=== PATIENT | male | born 1975 | race Caucasian/White ===

== ENCOUNTER 2019-09-12 03:32 | Emergency (ER) | payer BC ==
[2019-09-12] MEDS ORDERED: NORMAL SALINE 1000 ML 1,000 ML IV ONE (03:52)
[2019-09-12] MEDS ORDERED: HYDROMORPHONE HCL INJ/PF 2 MG/ML AMPULE IV ONE (03:52)
--- NOTE | 2019-09-12 03:54 | ER Document Report ---
ED GI/ - General Stated Complaint: ABDOMINAL PAIN Time Seen by Provider: 09/12/19 03:45 Primary Care Provider: [facility] [Provider Group] - Follow up tomorrow Notes: Patient is a 43-year-old male that comes to the emergency department for chief complaint of sudden onset of sharp right upper quadrant pain with nausea and 4 episodes of vomiting. Pain started at midnight tonight and woke him up out of his sleep. He denies flank pain, fever/chills, or history of the same. He denies any abdominal surgeries or any daily medications. He denies alcohol tonight. He denies recreational drugs. - Related Data Allergies/Adverse Reactions: No Known Allergies Allergy (Unverified 09/12/19 04:42) Past Medical History - General Information source: Patient, Relative - Social History Smoking Status: Never Smoker Frequency of alcohol use: None Drug Abuse: None Lives with: Family Family History: Reviewed & Not Pertinent - Medical History Medical History: Negative Surgical Hx: Negative - Immunizations Immunizations up to date: Yes Hx Diphtheria, Pertussis, Tetanus Vaccination: Yes Review of Systems - Review of Systems Constitutional: No symptoms reported EENT: No symptoms reported Cardiovascular: No symptoms reported Respiratory: No symptoms reported Gastrointestinal: See HPI Genitourinary: No symptoms reported Male Genitourinary: No symptoms reported Musculoskeletal: No symptoms reported Skin: No symptoms reported Hematologic/Lymphatic: No symptoms reported Neurological/Psychological: No symptoms reported Physical Exam - Vital signs Vitals: Temp Pulse Resp BP Pulse Ox 98 F 60 24 H 150/85 H 99 09/12/19 03:33 09/12/19 03:33 09/12/19 03:33 09/12/19 03:33 09/12/19 03:33 - Notes Notes: GENERAL: Alert, appears to be in pain, tearful HEAD: Normocephalic, atraumatic. EYES: Pupils equal, round, and reactive to light. Extraocular movements intact. ENT: Oral mucosa moist, tongue midline. Oropharynx unremarkable. NECK: Full range of motion. Supple. Trachea midline. LUNGS: Clear to auscultation bilaterally, no wheezes, rales, or rhonchi. No respiratory distress. HEART: Regular rate and rhythm. No murmur ABDOMEN: Tender in the right upper quadrant, remaining abdomen is soft and benign. No guarding or rigidity, bowel sounds present. GENITOURINARY: Deferred EXTREMITIES: Moves all 4 extremities spontaneously. No edema, normal radial and dorsalis pedis pulses bilaterally. No cyanosis. BACK: No CVA tenderness. No cervical, thoracic, lumbar midline tenderness. No saddle anesthesia, normal distal neurovascular exam. Moves all extremities in full range of motion. NEUROLOGICAL: Alert and oriented x3. Normal speech. Cranial nerves II through XII grossly intact. PSYCH: Anxious and tearful SKIN: Warm, dry, normal turgor. No rashes or lesions noted. Course - Re-evaluation Re-evalutation: Patient initially appears to be in pain and is tearful, after pain medication this improved but he is still anxious, he was given Ativan as a result. After this he became calm and relaxed. CBC unremarkable, chemistry unremarkable, lipase unremarkable, urinalysis unremarkable. Right upper quadrant ultrasound showing cholelithiasis without cholecystitis or obstruction. I discussed with patient. He states he does feel improved but he wants to discuss possible surgery today. I called and spoke with Dr. Rodriguez, he states the OR schedule is very full and the patient may have to wait a long time. He recommends following up in the office with return precautions. I discussed this with patient, patient states agreement with this plan, stable at time of discharge. - Vital Signs Vital signs: Temp Pulse Resp BP Pulse Ox 98 F 60 13 128/78 H 93 09/12/19 03:33 09/12/19 03:33 09/12/19 07:00 09/12/19 07:00 09/12/19 07:00 - Laboratory Result Diagrams: 09/12/19 03:39 09/12/19 03:39 Laboratory results interpreted by me: 09/12/19 09/12/19 03:39 05:45 Glucose 124 H Urine Ketones TRACE H Discharge - Discharge Clinical Impression: RUQ pain Vomiting Qualifiers: Vomiting type: unspecified Vomiting Intractability: non-intractable Nausea presence: with nausea Qualified Code(s): R11.2 - Nausea with vomiting, unspecified Cholelithiasis Qualifiers: Cholelithiasis location: gallbladder Cholecystitis presence: without cholecystitis Biliary obstruction: without biliary obstruction Qualified Code(s): K80.20 - Calculus of gallbladder without cholecystitis without obstruction Condition: Stable Disposition: HOME, SELF-CARE Additional Instructions: Your evaluation does show gallstones without infection or obstruction. Please call the surgical clinic tomorrow to perform close follow-up to have this removed. Avoid any fatty or greasy foods as this will be much more likely to trigger gallbladder pain. Take pain and nausea medications if needed, however if pain becomes severe, you start vomiting, you develop a fever, or any other concerning or worsening symptoms develop, return to the emergency department. Prescriptions: Hydrocodone/Acetaminophen [[place] 5-325 mg Tablet] 1 - 2 tab PO ASDIR PRN #12 tablet PRN Reason: Ondansetron [Zofran Odt 4 mg Tablet] 1 - 2 tab PO Q4H PRN #15 tab.rapdis PRN Reason: For Nausea/Vomiting Referrals: [facility] [Provider Group] - Follow up tomorrow
[2019-09-12] MEDS ORDERED: METOCLOPRAMIDE HCL INJ/PF 10 MG/2 ML SDV IV ONE (04:00)
[2019-09-12 04:05] LABS: HEMATOCRIT 43.3 % (37.9-51.0); HEMOGLOBIN 14.8 g/dL (13.5-17.0); MEAN CORPUSCULAR HEMOGLOBIN 30.5 pg (27.0-33.4); MEAN CORPUSCULAR HGB CONC 34.3 g/dL (32.0-36.0); MEAN CORPUSCULAR VOLUME 89 fl (80-97); PLATELET COUNT 207 10^3/uL (150-450); RED BLOOD COUNT 4.86 10^6/uL (4.35-5.55); RED CELL DISTRIBUTION WIDTH 13.3 % (11.5-14.0); WHITE BLOOD COUNT 8.8 10^3/uL (4.0-10.5)
[2019-09-12] MEDS ORDERED: LORAZEPAM INJ 2 MG/1 ML VIAL IV ONE (04:09)
[2019-09-12] MEDS ORDERED: LORAZEPAM INJ 2 MG/1 ML VIAL ONE (04:10)
[2019-09-12 04:20] LABS: ALBUMIN 4.2 g/dL (3.5-5.0); ALKALINE PHOSPHATASE 72 U/L (38-126); ANION GAP 11 (5-19); ASPARTATE AMINO TRANSFERASE 27 U/L (17-59); BILIRUBIN,DIRECT 0.1 mg/dL (0.0-0.4); BILIRUBIN,TOTAL 0.4 mg/dL (0.2-1.3); BLOOD UREA NITROGEN 17 mg/dL (7-20); CALCIUM 9.7 mg/dL (8.4-10.2); CARBON DIOXIDE 23 mmol/L (22-30); CHLORIDE 104 mmol/L (98-107); GLUCOSE 124 mg/dL (75-110); TOTAL PROTEIN 7.5 g/dL (6.3-8.2)
[2019-09-12 04:28] LABS: ABSOLUTE LYMPHOCYTES# (MANUAL) 2.2 10^3/uL (0.5-4.7); ABSOLUTE MONOCYTES # (MANUAL) 0.8 10^3/uL (0.1-1.4); BAND NEUTROPHILS % (MANUAL) 3 % (3-5); BASOPHILS % (MANUAL) 0 % (0-2); EOSINOPHILS % (MANUAL) 0 % (0-6); LYMPHOCYTES % (MANUAL) 25 % (13-45); MONOCYTES % (MANUAL) 9 % (3-13); SEGMENTED NEUTROPHILS % (MAN) 63 % (42-78); TOTAL CELLS COUNTED 100
[2019-09-12 04:30] LABS: RBC MORPHOLOGY COMMENT NORMO-CYTIC/CHROMIC
[2019-09-12 04:45] LABS: PLATELET COMMENT ADEQUATE
--- NOTE | 2019-09-12 05:51 | RADIOLOGY REPORT (SQ) ---
Ultrasound right upper quadrant on 09/12/2019 at 4:33 AM CLINICAL INDICATION: Right upper quadrant pain, nausea and vomiting COMPARISON: None FINDINGS: Multiple sonographic images are obtained throughout the right upper quadrant, both transverse and sagittal images are obtained. Pancreas is largely obscured. There is increased echogenicity in the liver consistent with fatty infiltration. No focal liver lesion is noted. There are multiple echogenic foci with posterior shadowing in the gallbladder consistent with multiple gallstones. No gallbladder wall thickening or pericholecystic fluid is noted. There is some focal fatty sparing in the liver adjacent to the gallbladder. Technologist noted a negative sonographic Ying sign. Common duct measures 4 mm which is within normal limits mitigating against obstruction of the biliary tree. Right kidney shows no hydronephrosis. IMPRESSION: 1. Cholelithiasis. 2. Fatty infiltration of the liver.
[2019-09-12 06:07] LABS: APPEARANCE,URINE CLEAR; BILIRUBIN,URINE NEGATIVE (NEGATIVE); COLOR,URINE YELLOW; GLUCOSE, URINE NEGATIVE (NEGATIVE); KETONES,URINE TRACE mg/dL (NEGATIVE); LEUKOCYTE ESTERASE,URINE NEGATIVE (NEGATIVE); NITRITE,URINE NEGATIVE (NEGATIVE); PROTEIN,URINE NEGATIVE (NEGATIVE); URINE SPECIFIC GRAVITY 1.027; UROBILINOGEN,URINE NEGATIVE mg/dL (<2.0)
[2019-09-12] MEDS ORDERED: HYDROCODONE/ACETAMINOPHEN 5-325 MG (6 TAB/ER DISP) PO PRN (08:14)
[2019-09-12] MEDS ORDERED: ONDANSETRON ODT 4 MG TAB (6 TAB/ER DISP) PO PRN (08:14)
[2019-09-12 08:35] VITALS: BP 130/74
--- NOTE | 2019-09-13 08:47 | PDOC CONSULTATION ---
Consultation Consult Date: 09/13/19 Attending physician:: KRISTA AGUILAR Provider Consulted: SURJIT FOSTER History of Present Illness Admission Date/PCP: elan. Patient complains of: ruq abdominal pain History of Present Illness: ELMER ESTRADA is a 43 year old male Patient is a 43-year-old male that comes to the emergency department for chief complaint of sudden onset of sharp right upper quadrant pain with nausea and 4 episodes of vomiting. Pain started at midnight tonight and woke him up out of his sleep. He denies flank pain, fever/chills, or history of the same. He denies any abdominal surgeries or any daily medications. He denies alcohol tonight. He denies recreational drugs Past Medical History Cardiac Medical History: Denies: None, Atrial Fibrillation, Congestive Heart Failure, Coronary Artery Disease, DVT, Myocardial Infarction, Hyperlipidema, Hypertension, Peripheral Vascular Disease, Pulmonary Embolism, Heart Murmur, Other Pulmonary Medical History: Denies: None, Asthma, Bronchitis, Chronic Obstructive Pulmonary Disease (COPD), Intubation, Pneumonia, Respiratory Failure, Sleep Apnea, Tuberculosis, Other EENT Medical History: Denies: None, Cataracts, Eyes, Ears, Nose, Throat, Other Neurological Medical History: Denies: None, Hemorrhagic CVA, Ischemic CVA, Migraine, Multiple Sclerosis, Seizures, Other Endocrine Medical History: Denies: None, Diabetes Mellitus Type 1, Diabetes Mellitus Type 2, Gestational Diabetes, Hyperthyroidism, Hypothyroidism, Obesity, Other Renal/ Medical History: Denies: None, Chronic Kidney Disease, End Stage Renal Disease, Nephrolithiasis, Other Malignancy Medical History: Denies: None, Bone Cancer, Brain Cancer, Breast Cancer, Cervical Cancer, Colorectal Cancer, Leukemia, Liver Cancer, Lung Cancer, Lymphoma, Ovarian Cancer, Pancreatic Cancer, Renal (Kidney) Cancer, Skin Cancer, Other GI Medical History: Denies: None, Cirrhosis, Crohn's Disease, Diverticulitis, Gastroesophageal Reflux Disease, Hepatitis, Hiatal Hernia, Peptic Ulcer Disease, Ulcerative Colitis, Other Musculoskeltal Medical History: Reports: Other - multiple sclerosis Skin Medical History: Reports: None Psychiatric Medical History: Denies: None, Alcohol Dependency, Attention Deficit Hyperactivity Disorder, Bipolar Disorder, Dementia, Depression, General Anxiety Disorder, Personality Disorder, Post Traumatic Stress Disorder, Schizoaffective Disorder, Substance Abuse, Tobacco Dependency, Other Traumatic Medical History: Denies: None, Gunshot Wound, Pneumothorax, Stab Wound, Traumatic Brain Injury, Other Hematology: Denies: None, Anemia, Hemophilia, Sickle Cell Disease, Bleeding Tendencies, Heparin Induced Thrombocytopenia, Neutropenia, Other Infectious Medical History: Denies: None, Clostridium Difficile, Hepatitis B, Hepatitis C, HIV, Methicillin-Resistant Staph Aureus, Vancomycin-Resistant Enterococci, Other Past Surgical History Past Surgical History: Reports: None Social History Lives with: Family Smoking Status: Never Smoker Family History Family History: Reviewed & Not Pertinent Parental Family History Reviewed: No Children Family History Reviewed: NA Sibling(s) Family History Reviewed.: NA Medication/Allergy Home Medications: Hydrocodone/Acetaminophen [[place] 5-325 mg Tablet] 1 - 2 tab PO ASDIR PRN #12 tablet 09/12/19 Ondansetron [Zofran Odt 4 mg Tablet] 1 - 2 tab PO Q4H PRN #15 tab.rapdis 09/12/19 Allergies/Adverse Reactions: No Known Allergies Allergy (Unverified 09/12/19 04:42) Physical Exam Vital Signs: Temp Pulse Resp BP Pulse Ox 98.2 F 60 11 L 130/74 H 98 09/12/19 08:41 09/12/19 03:33 09/12/19 08:30 09/12/19 08:30 09/12/19 08:30 Intake & Output 09/12/19 09/13/19 09/14/19 06:59 06:59 06:59 Intake Total 1000 Balance 1000 Weight 113.4 kg General appearance: PRESENT: mild distress, obese Head exam: PRESENT: normocephalic Eye exam: PRESENT: EOMI Mouth exam: PRESENT: dry mucosa Neck exam: PRESENT: full ROM Respiratory exam: PRESENT: clear to auscultation césar Cardiovascular exam: PRESENT: RRR Pulses: PRESENT: normal femoral pulses, normal dorsalis pedis pul Vascular exam: PRESENT: normal capillary refill GI/Abdominal exam: PRESENT: soft, tenderness - ruq Rectal exam: PRESENT: deferred Extremities exam: PRESENT: full ROM Musculoskeletal exam: PRESENT: full ROM Neurological exam: PRESENT: alert, awake, oriented to person, oriented to place Psychiatric exam: PRESENT: appropriate affect Skin exam: PRESENT: dry Results Laboratory Results: 09/12/19 03:39 09/12/19 03:39 Impressions: Abdomen Ultrasound 10/27/19 03:51 IMPRESSION: 1. Cholelithiasis. 2. Fatty infiltration of the liver. Status: Image reviewed by me Assessment & Plan - Plan Summary Plan Summary: Plan is for laparoscopic cholecystectomy the risk benefits the procedure has been discussed. Bleeding infection pulmonary embolism stroke microinfarction and of been discussed injury to adjacent organs including the bile ducts hepatic vasculature small bowel: Duodenum the stomach has been discussed injury to the pancreas is been discussed pancreatitis after surgery ventral hernia formation pain retained stones of all been discussed he understands and agrees to proceed Dot
== END 2019-09-12 08:41 | disposition home or self-care (01) ==
LOC: ER 03:32
DX: K80.20 Calculus of gallbladder without cholecystitis without obstruction (principal); R10.11 Right upper quadrant pain; R11.2 Nausea with vomiting, unspecified
CPT/HCPCS: 36415; 83690; 85025; 80053; 81001; 76705; J2765; J1170; J2060; J7030; 96361; 96374; 96375; 99285

== ENCOUNTER 2019-09-14 06:33 | Day surgery (SDC) | payer BC ==
[~2019-09-14 06:33] MED LIST: CEFAZOLIN SODIUM 1 GM in DEXTROSE 5%-WATER 50 ML IV PRN; METRONIDAZOLE 500 MG/NS RTU 500 MG/100 ML RTUPB IV ONE; METRONIDAZOLE 500 MG/NS RTU 500 MG/100 ML RTUPB IV PRN
[2019-09-14] MEDS ORDERED: MIDAZOLAM 2 MG/2 ML INJ ONE ×2 (06:49→07:35)
[2019-09-14] MEDS ORDERED: PROPOFOL INJ 200 MG/20 ML VIAL IV ONE (06:49)
[2019-09-14] MEDS ORDERED: FENTANYL CITRATE INJ/PF 100 MCG/2 ML AMPUL ONE (06:49)
[2019-09-14] MEDS ORDERED: SCOPOLAMINE HYDROBROMIDE 1.5 MG PATCH.TD72 ONE (07:34)
[2019-09-14] MEDS ORDERED: DEXAMETHASONE SOD PHOS INJ 10 MG/1 ML VIAL ONE (07:34)
[2019-09-14] MEDS ORDERED: DIPHENHYDRAMINE HCL 50 MG/ML VIAL ONE (07:34)
[2019-09-14] MEDS ORDERED: FAMOTIDINE INJ/PF 20 MG/2 ML SDV IV ONE (07:35)
[2019-09-14] MEDS ORDERED: DEXAMETHASONE SOD PHOS INJ 10 MG/1 ML VIAL IV PRN (07:39)
[2019-09-14] MEDS ORDERED: SCOPOLAMINE HYDROBROMIDE 1.5 MG PATCH.TD72 TD PRN (07:40)
[2019-09-14] MEDS ORDERED: FAMOTIDINE INJ/PF 20 MG/2 ML SDV IV PRN (07:42)
[2019-09-14] MEDS ORDERED: DIPHENHYDRAMINE HCL 50 MG/ML VIAL IV PRN ×2 (07:44→08:20)
[2019-09-14] MEDS ORDERED: ONDANSETRON HCL INJ/PF 4 MG/2 ML SDV IV PRN (08:20)
[2019-09-14] MEDS ORDERED: MORPHINE SULFATE 10 MG/ML INJ IV PRN (08:20)
[2019-09-14] MEDS ORDERED: OXYCODONE-ACETAMINOPHEN 5-325 MG TABLET PO PRN ×3 (08:20→11:09)
[2019-09-14] MEDS ORDERED: MEPERIDINE HCL/PF INJ 25 MG/1 ML DISP.SYRIN IV PRN (08:20)
[2019-09-14] MEDS ORDERED: FENTANYL CITRATE INJ/PF 100 MCG/2 ML AMPUL IV PRN ×3 (08:20)
[2019-09-14] MEDS: BUPIVACAINE HCL 0.25 % INJ/PF (2.5 MG/1 ML) 30 ML VIAL ONE ×2 (09:49→10:57)
--- NOTE | 2019-09-14 11:07 | Operative Report ---
Nonrecallable Operative Report DATE OF SURGERY: 09/14/19 PREOPERATIVE DIAGNOSIS: cholecystitis POSTOPERATIVE DIAGNOSIS: Cholecystitis OPERATION: Laparoscopic cholecystectomy SURGEON: SURJIT FOSTER ANESTHESIA: GA TISSUE REMOVED OR ALTERED: Gallbladder COMPLICATIONS: None ESTIMATED BLOOD LOSS: 25 cc INTRAOPERATIVE FINDINGS: See dictation PROCEDURE: After obtaining informed consent, the patient was taken to the operating room. General Anesthesia was induced; the arms were extended, and the abdomen was exposed, and prepped and draped in a sterile fashion. Instrumentation was set up for laparoscopic cholecystectomy. Surgical plan and surgical timeout were conducted. A vertical incision was made above the umbilicus, and a verres needle was inserted uneventfully into the peritoneal cavity. Pneumoperitoneum was established. The verres needle was removed and a 10 mm trocar was inserted and a 10 mm laparoscope was inserted. Visualization of the peritoneal cavity confirmed safe uneventful entry. Under direct visualization 3 additional 5 mm ports were established, one in the subxiphoid position and second in the subcostal position. Visualization of the hepatobiliary anatomy revealed no anatomic variations. A grasper was placed on the fundus of the gallbladder and the gal lbladder is elevated over the right surface of the liver; a second grasper was used to grasp the infundibulum of the gallbladder. The neck of the gallbladder and junction with the cystic duct was dissected out. The Cystic artery was in its usual location medial and cephalad to the cystic duct. The cystic artery was surrounded with a right angle clamp, clipped twice proximally and divided with laparoscopic scissors. The gallbladder was markedly inflamed We now opened the triangle of Calot by dividing the peritoneal reflection on both the medial and lateral sides of the cystic duct infundibular junction. The critical view was obtained. We now milked the cystic duct of any possible stones, clipped the cystic duct approximately 2 times once distally and divided with scissors. The gallbladder was now removed from the undersurface of the liver using hook cautery dissection. Graspers were repositioned and the gallbladder was removed uneventfully from the abdominal cavity through the super umbilical port site incision. The specimen was examined, then passed off to pathology for permanent analysis. We returned to the peritoneal cavity check for bleeding, and evidence of bile l eak, and there was none. We Confirmed satisfactory placement of clips on cystic duct and cystic artery were secured . At this point we felt the operation was complete. The subcutaneous tissue was then anesthetized with quarter percent Marcaine Sponge and needle counts are correct. All ports removed under direct visualization pneumoperitoneum evacuated, and 5 mm port wounds closed with 3-0 Vicryl suture, benzoin and Steri-Strips. The patient was extubated, and taken to the recovery room in stable condition.
--- NOTE | 2019-09-14 11:09 | Discharge Summary ---
Discharge Summary (SDC) - Discharge Final Diagnosis: Cholecystitis Date of Surgery: 09/14/19 Discharge Date: 09/14/19 Condition: Good Referrals: PAM CALLE PA-C [Primary Care Provider] - Discharge Diet: As Tolerated Discharge Activity: Activity As Tolerated, No Lifting Over 10 Pounds Report the Following to Your Physician Immediately: Shortness of Breath, Nausea, Vomiting, Increase in Pain, Yellow Skin, Fever over 101 Degrees - Patient needs a follow-up appointment in 7 to 10 days in surgery clinic
[2019-09-14] MEDS ORDERED: OXYCODONE HCL IR 5 MG TABLET ONE (11:49)
[2019-09-14] MEDS ORDERED: ACETAMINOPHEN 1,000 MG/100 ML RTUPB IV ONE ×2 (12:15→13:30)
[2019-09-14 13:49] VITALS: BP 127/76
[2019-09-14] MEDS ORDERED: SUCCINYLCHOLINE CHLORIDE INJ 200 MG/10 ML VIAL ONE (14:11)
[2019-09-14] MEDS ORDERED: ONDANSETRON HCL INJ/PF 4 MG/2 ML SDV ONE (14:11)
[2019-09-14] MEDS ORDERED: DEXAMETHASONE SOD PHOSPHATE INJ 4 MG/1 ML VIAL ONE (14:11)
[2019-09-14] MEDS ORDERED: ROCURONIUM BROMIDE INJ 50 MG/5 ML VIAL IV ONE (14:11)
[2019-09-14] MEDS ORDERED: KETOROLAC TROMETHAMINE 60 MG/2 ML SDV ONE (14:11)
== END 2019-09-14 13:20 | disposition home or self-care (01) ==
LOC: OROUT 06:33
PROVIDERS: ATTEND Surgery
DX: K80.12 Calculus of gallbladder with acute and chronic cholecystitis without obstruction (principal); Z87.891 Personal history of nicotine dependence
CPT/HCPCS: 86900; 86901; 36415; 86850; 88304 ×2; 47562; J2250; J0690; J3490 ×2; J1100 ×2; J1200; J1885; J3010; J0330; J2405; J7060; J2704; S0028; J0131; 790